=== PATIENT | male | born 1980 | race American Indian/Alaskan Native ===

== ENCOUNTER 2016-12-02 20:00 | Emergency (ER) | payer OTHER ==
[2016-12-02 20:57] LABS: Basophils % (Auto) 0.2 % (0.0-1.8); Eosinophils % (Auto) 0.3 % (0.0-4.3); Hematocrit 56.3 % (35.5-45.6); Hemoglobin 18.5 gm/dl (11.8-15.2); Mean Corpuscular HGB Conc 33 % (32-34); Mean Corpuscular Hemoglobin 31 pg (28-32); Mean Corpuscular Volume 93 fl (84-94); Platelet Count 258 K/mm3 (140-440); Red Blood Count 6.06 M/mm3 (3.65-5.03); White Blood Count 14.7 K/mm3 (4.5-11.0)
[2016-12-02 21:06] LABS: Bilirubin,Urine SM (Negative); Blood,Urine NEG (Negative); Ketones,Urine NEG (Negative); Leukocyte Esterase,Urine NEG (Negative); Mucus,Urine 3+ /HPF; Nitrite,Urine NEG (Negative); Urobilinogen,Urine < 2.0 mg/dL (<2.0)
[2016-12-02 21:19] LABS: Alanine Aminotransferase 15 units/L (7-56); Albumin 4.8 g/dL (3.9-5); Albumin/Globulin Ratio 1.2 %; Alkaline Phosphatase 71 units/L (35-129); Anion Gap 19 mmol/L; BUN/Creatinine Ratio 11; Blood Urea Nitrogen 12 mg/dL (9-20); Calcium 9.9 mg/dL (8.4-10.2); Carbon Dioxide 26 mmol/L (22-30); Chloride 96.9 mmol/L (98-107); Glucose 101 mg/dL (75-100); Lipase 49 units/L (13-60); Potassium 4.3 mmol/L (3.6-5.0); Sodium 138 mmol/L (137-145); Total Protein 8.7 g/dL (6.3-8.2)
[2016-12-03] MEDS ORDERED: NACL 0.9% 1000 ML 1,000 ML IV ONE (10:46)
[2016-12-03] MEDS ORDERED: ZOFRAN IV ONE (10:46)
[2016-12-03] MEDS ORDERED: SUBLIMAZE IV ONE (10:46)
--- NOTE | 2016-12-03 10:53 | Emergency Department Report ---
HPI - General Chief Complaint: Abdominal Pain Time Seen by Provider: 12/03/16 10:42 - HPI HPI: Room 3 The patient is 36-year-old male presented with a chief complaint of abdominal pain. The patient states that yesterday his had constant pain in right lower quadrant. The patient states yesterday he also developed nausea vomiting and diarrhea. Patient denies any history of fever but admits to diaphoresis with this abdominal pain. The patient currently gives his pain score of 8/10 Location: [see above] Duration: [see above] Quality: Pain Severity: 8/10 Modifying factors: [see above] Context: [see above] Mode of transportation: [not driving] ED Past Medical Hx - Past Medical History Additional medical history: crohn's - Surgical History Additional Surgical History: colon resection due to crohns - Family History Family history: no significant - Social History Smoking Status: Never Smoker Substance Use Type: None (denies illicit drug use) - Medications Home Medications: Home Medications Medication Instructions Recorded Confirmed Last Taken Type Diphenoxylate HCl/Atropine 2 each PO QID PRN #20 tablet 12/03/16 Unknown Rx [Lomotil 2.5-0.025 mg Tablet] HYDROcodone/APAP 5-325 [[place] 1 - 2 each PO Q6HR PRN #14 tablet 12/03/16 Unknown Rx 5/325] Promethazine [Phenergan TAB] 25 mg PO Q6HR PRN #20 tab 12/03/16 Unknown Rx Promethazine [Phenergan] 25 mg [place] Q6HR PRN #5 supp.rect 12/03/16 Unknown Rx ED Review of Systems ROS: Stated complaint: ABD PAIN Other details as noted in HPI Comment: All other systems reviewed and negative Constitutional: diaphoresis. denies: fever Eyes: denies: eye pain, eye discharge, vision change ENT: denies: ear pain, throat pain Respiratory: denies: cough, shortness of breath, wheezing Cardiovascular: denies: chest pain, palpitations Endocrine: no symptoms reported Gastrointestinal: abdominal pain, nausea, vomiting, diarrhea Genitourinary: denies: urgency, dysuria Musculoskeletal: denies: back pain, joint swelling, arthralgia Skin: denies: rash, lesions Neurological: denies: headache, weakness, paresthesias Psychiatric: denies: anxiety, depression Hematological/Lymphatic: denies: easy bleeding, easy bruising Physical Exam - Physical Exam Vital Signs: Vital Signs 12/02/16 12/03/16 20:04 08:31 Temperature 98.7 F 97.8 F Pulse Rate 80 66 Respiratory 18 16 Rate Blood Pressure 132/80 Blood Pressure 132/87 [Left] O2 Sat by Pulse 100 100 Oximetry Physical Exam: GENERAL: The patient is well-developed well-nourished male lying on stretcher appearing to be in mild discomfort. [] HEENT: Normocephalic. Atraumatic. Extraocular motions are intact. NECK: Supple. Trachea midline CHEST/LUNGS: Clear to auscultation. There is no respiratory distress noted. HEART/CARDIOVASCULAR: Regular. There is no tachycardia. There is no gallop rub or murmur. ABDOMEN: Abdomen is soft, with tenderness to palpation only in the right lower quadrant. Patient has normal bowel sounds. There is no abdominal distention. SKIN: There is no rash. There is no edema. There is no diaphoresis. NEURO: The patient is awake, alert, and oriented. The patient is cooperative. The patient has normal speech MUSCULOSKELETAL: There is no evidence of acute injury. ED Course Vital Signs 12/02/16 12/03/16 20:04 08:31 Temperature 98.7 F 97.8 F Pulse Rate 80 66 Respiratory 18 16 Rate Blood Pressure 132/80 Blood Pressure 132/87 [Left] O2 Sat by Pulse 100 100 Oximetry ED Medical Decision Making - Lab Data Result diagrams: 12/02/16 20:08 12/02/16 20:08 Laboratory Tests 12/02/16 12/02/16 12/02/16 20:08 20:08 20:27 WBC 14.7 H RBC 6.06 H Hgb 18.5 H Hct 56.3 H MCV 93 MCH 31 MCHC 33 RDW 13.0 L Plt Count 258 Lymph % (Auto) 10.6 L Page % (Auto) 8.9 H Eos % (Auto) 0.3 Baso % (Auto) 0.2 Lymph # 1.5 Page # 1.3 H Eos # 0.0 Baso # 0.0 Seg Neutrophils % 80.0 H Seg Neutrophils # 11.7 H Sodium 138 Potassium 4.3 Chloride 96.9 L Carbon Dioxide 26 Anion Gap 19 BUN 12 Creatinine 1.1 Estimated GFR > 60 BUN/Creatinine Ratio 11 Glucose 101 H Calcium 9.9 Total Bilirubin 2.10 H AST 17 ALT 15 Alkaline Phosphatase 71 Total Protein 8.7 H Albumin 4.8 Albumin/Globulin Ratio 1.2 Lipase 49 Urine Color [place] Urine Turbidity Clear Urine pH 5.0 Ur Specific [place] 1.032 H Urine Protein 100 mg/dl Urine Glucose (UA) Neg Urine Ketones Neg Urine Blood Neg Urine Nitrite Neg Urine Bilirubin Sm Urine Ictotest Negative Urine Urobilinogen < 2.0 Ur Leukocyte Esterase Neg Urine WBC (Auto) 3.0 Urine RBC (Auto) 1.0 U Epithel Cells (Auto) < 1.0 Urine Mucus 3+ - Radiology Data Radiology results: report reviewed (CT abdomen and pelvis), image reviewed (CT abdomen and pelvis) CT abdomen and pelvis (read by radiologist)-mid to distal small bowel fluid- filled dilatation with wall prominence/slight thickening again noted, extending up to the ileocolic anastomosis in the right hemiabdomen with some degree of narrowing/stricturing not entirely excluded. Minimal abdomen and pelvic ascites , though slightly increased since June 2012. Discussed with radiologist and he sees no evidence of adjacent inflammation to fluid-filled bowel - Differential Diagnosis acute appendicitis, Crohn's flare, gastroenteritis, small bowel obstruction Critical care attestation.: If time is entered above; I have spent that time in minutes in the direct care of this critically ill patient, excluding procedure time. ED Disposition Clinical Impression: Acute abdominal pain, Nausea vomiting and diarrhea, Crohns disease Disposition: TO HOME OR SELFCARE Is pt being admited?: No Does the pt Need Aspirin: No Condition: Stable Instructions: Acute Nausea and Vomiting (ED), Abdominal Pain (ED) Additional Instructions: Return to the emergency department immediately should you develop worsening symptoms, fever, inability to tolerate food or liquid or any other concerns. Prescriptions: Diphenoxylate HCl/Atropine [Lomotil 2.5-0.025 mg Tablet] 2 each PO QID PRN #20 tablet PRN Reason: Diarrhea HYDROcodone/APAP 5-325 [[place] 5/325] 1 - 2 each PO Q6HR PRN #14 tablet PRN Reason: Pain Promethazine [Phenergan TAB] 25 mg PO Q6HR PRN #20 tab PRN Reason: Nausea Promethazine [Phenergan] 25 mg [place] Q6HR PRN #5 supp.rect PRN Reason: Vomiting Referrals: DIONNA CLAUDIO [Other] - 3-5 Days Time of Disposition: 13:32
[2016-12-03 11:33] VITALS: BP 132/87
--- NOTE | 2016-12-03 12:41 | Cat Scan Report ---
CT ABDOMEN AND PELVIS WITH CONTRAST INDICATION: Right lower quadrant abdominal pain. History of Crohn's disease. COMPARISON: 07/16/2012 CT. FINDINGS: Abdomen and pelvis CT performed following intravenous administration of 100 cc of Omnipaque 300. LUNG BASES: Mild air filled distal esophageal prominence. ABDOMEN: Minimal perihepatic ascites. Liver, spleen, gallbladder, pancreas, adrenals, aorta, IVC and kidneys appear within normal limits. No size significant adenopathy. Nonopacified GI tract evaluation limited. Stomach again mildly distended, containing air and fluid. Proximal to mid small bowel remains decompressed. Mid to distal small bowel again dilated and fluid-filled with caliber up to 3.7 cm in right lower quadrant as on axial image 20, series 2. Slight diffuse wall prominence/thickening as well. Stable ileocolic anastomosis in the right hemiabdomen as on axial image 158, amongst others. Normal colonic caliber. PELVIS: Small pelvic free fluid again noted measuring 22 HU as on axial image 334, amongst others. Urinary bladder, seminal vesicles, prostate and rectosigmoid within normal limits. No size significant adenopathy. Mild bilateral SI joint degenerative spurring and a stable 1.2 cm sclerotic focus along the right iliac bone posteriorly, axial image 299, series 2. CONCLUSION: 1. Mid to distal small bowel fluid-filled dilatation with wall prominence/slight thickening again noted, extending up to the ileocolic anastomosis in the right hemiabdomen with some degree of narrowing/stricturing not entirely excluded. 2. Minimal abdomen and pelvic ascites, though slightly increased since June 2012. 3. Few other incidental findings, as above. Thank you for the opportunity to participate in this patient's care.
== END 2016-12-03 14:41 | disposition home or self-care (01) ==
LOC: ED 20:00
DX: K50.90 Crohn's disease, unspecified, without complications (principal); R10.31 Right lower quadrant pain; R11.2 Nausea with vomiting, unspecified; R19.7 Diarrhea, unspecified
CPT/HCPCS: 36415; 74177; 80053; 81001; 83690; 85025; 96361; 96374; 96375; 99284; J2405; J3010; J7030; Q9967